=== PATIENT | female | born 1960 | race African-American/Black ===

== ENCOUNTER 2018-12-25 13:23 | Emergency (ER) | payer MEDICARE, MEDICAID ==
[~2018-12-25] VITALS: Ht 160 cm; Wt 82.0 kg
[~2018-12-25 13:23] MED LIST: HYDR12.529 PO
[2018-12-25] MEDS ORDERED: HYDROCODONE/APAP 7.5/325MG 1 TAB TABLET PO ONE (14:45)
[2018-12-25 15:45] VITALS: BP 109/71
== END 2018-12-25 15:45 | disposition home or self-care (01) ==
LOC: ER 13:31
DX: G89.29 Other chronic pain (principal); M25.561 Pain in right knee; M19.90 Unspecified osteoarthritis, unspecified site; I10 Essential (primary) hypertension
CPT/HCPCS: 99283